=== PATIENT | female | born 1985 | race Caucasian/White ===

== ENCOUNTER 2021-04-02 11:55 | Outpatient (CLI) | payer OTHER, SELFPAY ==
[2021-04-02 12:16] VITALS: BP 124/79; PULSE 66
[2021-04-02 12:31] VITALS: BP 113/77; PULSE 64
[2021-04-02 12:35] LABS: Basophils Percent Auto 0.3 % (0.2-1.2); Eosinophils Percent Auto 0.3 % (0-4.4); Hematocrit 35.1 % (37.0-47.0); Hemoglobin 11.2 g/dL (12.0-15.0); Immature Granulocyte Absolute 0.03 K/mm3 (0.00-0.031); Immature Granulocyte Percent A 0.4 % (0-0.5); Lymphocytes Absolute Auto 1.65 K/mm3 (0.9-3.2); Lymphocytes Percent Auto 21.9 % (18.3-44.2); Mean Corpuscular HGB Conc 31.9 g/dl (32-36); Mean Corpuscular Hemoglobin 29.2 pg (26-34); Mean Corpuscular Volume 91.6 fl (80-100); Mean Platelet Volume 11.3 fl (7.4-10.4); Monocytes Absolute Auto 0.6 K/mm3 (0.1-0.6); Monocytes Percent Auto 8.2 % (2.6-8.5); Neutrophils Absolute Auto 5.2 K/mm3 (1.3-6.7); Neutrophils Percent Auto 68.9 % (45.5-73.1); Platelet Count Result 165 k/mm3 (150-375); Red Blood Count 3.83 M/mm3 (4.2-5.4); Red Cell Distribution Width 12.6 % (11.5-14.5); White Blood Count 7.6 K/mm3 (4.5-10.0)
[2021-04-02 12:45] VITALS: BP 110/72; PULSE 66
[2021-04-02 12:48] LABS: Alanine Aminotransferase 28 U/L (4-35); Albumin Level 3.5 g/dL (3.5-5.1); Alkaline Phosphatase 166 U/L (38-126); Anion Gap 5 mmol/L (8-16); Aspartate Amino Transferase 45 U/L (14-36); Bilirubin,Total 0.3 mg/dL (0.2-1.3); Blood Urea Nitrogen 9 mg/dL (7-17); Calcium 8.5 mg/dL (8.4-10.2); Carbon Dioxide 22 mmol/L (22-30); Chloride 107 mmol/L (98-107); Estimated Glomerular Filt Rate > 60; Glucose 65 mg/dL (65-110); Potassium 3.9 mmol/L (3.4-5.0); Sodium 134 mmol/L (137-145); Uric Acid 5.2 mg/dL (2.5-7.5)
[2021-04-02 12:49] LABS: Creatinine Urine 40.1 mg/dL; Total Protein Urine Random 10 mg/dL; Ur Ttl Prot Creatinine Ratio 0.25 mg/mg (0-0.20)
[2021-04-02 12:56] LABS: Add Urine Microscopic? YES; Appearance Urine Clear (Clear); Bilirubin Urine Negative (Negative); Blood Urine Negative (Negative); Color Urine Straw (Yellow); Glucose Urine UA Negative (Negative); Ketones Urine Negative (Negative); Leukocyte Esterase Ur 1+ LEU/UL (NEGATIVE); Nitrate Urine Negative (Negative); Protein Urine Negative (Negative); RBC Urine 0-2 /hpf (0-2); Specific Grav Ur 1.009 (1.001-1.035); Squamous Epithelial Cell Urine Rare /hpf (Few); Urobilinogen Urine Negative mg/dL (<2.0); WBC Urine 0-3 /hpf (0-3)
[2021-04-02 13:00] VITALS: BP 115/75; PULSE 69
[2021-04-02 13:15] VITALS: BP 113/79; PULSE 61
[2021-04-02 13:30] VITALS: BP 113/79; BP 124/79; PULSE 65; TEMP 36.8
--- NOTE | 2021-04-02 13:52 | PC.NURSE ---
Addendum entered by Hermelinda Cordero RN 04/02/21 13:53: this note was entered for 04/02/21 at 1320 Original Note: Dr. Castaneda reviewed strip and lab result. order received to discharge home with 24 hour urine and follow up in office on tuesday.
== END 2021-04-02 13:35 | disposition home or self-care (01) ==
LOC: ANHOBOP 11:59 → ANHOBPP 12:02
PROVIDERS: Visit Provider Obstetrics & Gynecology
DX: R03.0 Elevated blood-pressure reading, without diagnosis of hypertension (principal)
CPT/HCPCS: 36415; 59025; 80053; 81001; 82570; 84156; 84550; 85025; 87086; 99199

== ENCOUNTER 2021-04-03 17:06 | Outpatient (NON) | payer OTHER, SELFPAY ==
[2021-04-03 17:38] VITALS: BMI 27.3
[2021-04-03 19:07] LABS: Collection Time Urine 24 HOURS
[2021-04-03 19:19] LABS: Patient Weight 179 Lbs; Specific Gravity Ur 1.015
[2021-04-03 19:31] LABS: Creatinine Urine 50.9 mg/dL; Total Protein Urine Random 10 mg/dL
[2021-04-03 19:55] LABS: Creatinine Clearance Urine 157.3 ml/min (75-125); Total Protein Urine 24 Hr 350 mg/24hr (28-141); Total Volume 24 Hour Urine 3500 ml
== END 2021-04-03 17:07 | disposition home or self-care (01) ==
LOC: ANHOBOP 17:12
PROVIDERS: Visit Provider Obstetrics & Gynecology
DX: O13.9 Gestational [pregnancy-induced] hypertension without significant proteinuria, unspecified trimester (principal)
CPT/HCPCS: 81050; 82575; 84156

== ENCOUNTER 2021-04-16 16:00 | Inpatient (IN) | payer OTHER, SELFPAY ==
[2021-04-16] VITALS (39 sets, daily range): BP systolic 86–153; BP diastolic 46–105; PULSE 55–107; TEMP 36.4–36.9; O2SAT 96–100; BMI 29.0
[2021-04-16 16:44] LABS: Basophils Percent Auto 0.4 % (0.2-1.2); Eosinophils Percent Auto 0.5 % (0-4.4); Hematocrit 32.1 % (37.0-47.0); Hemoglobin 10.4 g/dL (12.0-15.0); Immature Granulocyte Absolute 0.03 K/mm3 (0.00-0.031); Immature Granulocyte Percent A 0.4 % (0-0.5); Lymphocytes Absolute Auto 1.91 K/mm3 (0.9-3.2); Lymphocytes Percent Auto 26.1 % (18.3-44.2); Mean Corpuscular HGB Conc 32.4 g/dl (32-36); Mean Corpuscular Hemoglobin 28.2 pg (26-34); Mean Platelet Volume 11.9 fl (7.4-10.4); Monocytes Absolute Auto 0.6 K/mm3 (0.1-0.6); Monocytes Percent Auto 8.3 % (2.6-8.5); Neutrophils Absolute Auto 4.7 K/mm3 (1.3-6.7); Neutrophils Percent Auto 64.3 % (45.5-73.1); Platelet Count Result 136 k/mm3 (150-375); Red Blood Count 3.69 M/mm3 (4.2-5.4); Red Cell Distribution Width 12.8 % (11.5-14.5); White Blood Count 7.3 K/mm3 (4.5-10.0)
--- NOTE | 2021-04-16 16:49 | LDADM ---
This patient, Caty Quinn, was admitted to Labor/Delivery/Recovery 102 on 04/16/21 at 16:00. Plans for labor, pain management and were discussed with patient. Patient/family oriented to hospital policies and general routines including ID bracelet, bed and alarms, visiting hours, pain management, procedures, bathroom and other care routines, personal items, smoking policy, room service/diet and guest tray routines, security routines, and visiting hours. Patient/Family are encouraged to report perceived risks to care and to ask questions if they do not understand what they are told or what they should do. See OBIX for further documentation.
[2021-04-16 16:53] LABS: Alanine Aminotransferase 16 U/L (4-35); Albumin Level 3.4 g/dL (3.5-5.1); Alkaline Phosphatase 177 U/L (38-126); Anion Gap 7 mmol/L (8-16); Aspartate Amino Transferase 32 U/L (14-36); Bilirubin,Total 0.2 mg/dL (0.2-1.3); Blood Urea Nitrogen 12 mg/dL (7-17); Calcium 8.2 mg/dL (8.4-10.2); Carbon Dioxide 20 mmol/L (22-30); Chloride 106 mmol/L (98-107); Estimated CRCL calculation 112 ml/min; Estimated Glomerular Filt Rate > 60; Glucose 78 mg/dL (65-110); Sodium 133 mmol/L (137-145)
[2021-04-16 16:56] LABS: Uric Acid 5.8 mg/dL (2.5-7.5)
[2021-04-16] MEDS: DINOPROSTONE 10 MG VAG INSERT VAGINAL (17:14)
--- NOTE | 2021-04-16 18:28 | WPDANESEPP ---
Anes - Eval Pre Procedure Procedure: labor epidural Date/Time: 04/16/21 18:28 Surgeon: fidel Pre Op Diagnosis: iol Patient Data Age: 36 Gender: F Height: 1.73 m Weight: 86.5 kg Last Vital Signs Temp 36.9 C 04/16/21 17:00 Pulse 61 04/16/21 18:00 BP 121/76 04/16/21 18:00 Allergies Allergy/AdvReac Type Severity Reaction Status Date / Time Sulfa (Sulfonamide Allergy Intermediate HIVES Verified 08/28/18 14:13 Antibiotics) Home Medications Medication Instructions Recorded Confirmed Type famotidine 20 mg PO DAILY 04/15/21 04/15/21 History prenat.vits,radha,uyn-pttf-pulis 1 tablet PO DAILY 04/15/21 04/15/21 History [ #2] Laboratory Tests 04/16/21 04/16/21 04/16/21 16:31 16:31 16:31 WBC 7.3 K/mm3 K/mm3 (4.5-10.0) RBC 3.69 M/mm3 L M/mm3 (4.2-5.4) Hgb 10.4 g/dL L g/dL (12.0-15.0) Hct 32.1 % L % (37.0-47.0) MCV 87.0 fl fl (80-100) MCH 28.2 pg pg (26-34) MCHC 32.4 g/dl g/dl (32-36) RDW 12.8 % % (11.5-14.5) Plt Count 136 k/mm3 L k/mm3 (150-375) MPV 11.9 fl H fl (7.4-10.4) Immature Gran % (Auto) 0.4 % % (0-0.5) Neut % (Auto) 64.3 % % (45.5-73.1) Lymph % (Auto) 26.1 % % (18.3-44.2) [place] % (Auto) 8.3 % % (2.6-8.5) Eos % (Auto) 0.5 % % (0-4.4) Baso % (Auto) 0.4 % % (0.2-1.2) Lymph # (Auto) 1.91 K/mm3 K/mm3 (0.9-3.2) [place] # (Auto) 0.6 K/mm3 K/mm3 (0.1-0.6) Eos # (Auto) 0.0 K/mm3 K/mm3 (0-0.3) Baso # (Auto) 0.0 K/mm3 K/mm3 (0.0-0.1) Abs Immat Gran (auto) 0.03 K/mm3 K/mm3 (0.00-0.031) Absolute Neuts (auto) 4.7 K/mm3 K/mm3 (1.3-6.7) Absolute Nucleated RBC 0.0 K/mm3 K/mm3 (0.0-0.012) Nucleated RBC % 0.0 % % (0.0-0.2) Sodium Potassium Chloride Carbon Dioxide Anion Gap BUN Creatinine Estim Creat Clear Calc Estimated GFR Glucose Uric Acid 5.8 mg/dL mg/dL (2.5-7.5) Calcium Total Bilirubin AST ALT Alkaline Phosphatase Total Protein Albumin RPR Pending 04/16/21 16:31 WBC RBC Hgb Hct MCV MCH MCHC RDW Plt Count MPV Immature Gran % (Auto) Neut % (Auto) Lymph % (Auto) [place] % (Auto) Eos % (Auto) Baso % (Auto) Lymph # (Auto) [place] # (Auto) Eos # (Auto) Baso # (Auto) Abs Immat Gran (auto) Absolute Neuts (auto) Absolute Nucleated RBC Nucleated RBC % Sodium 133 mmol/L L mmol/L (137-145) Potassium 4.0 mmol/L mmol/L (3.4-5.0) Chloride 106 mmol/L mmol/L (98-107) Carbon Dioxide 20 mmol/L L mmol/L (22-30) Anion Gap 7 mmol/L L mmol/L (8-16) BUN 12 mg/dL mg/dL (7-17) Creatinine 0.70 mg/dL mg/dL (0.7-1.0) Estim Creat Clear Calc 112 ml/min ml/min Estimated GFR > 60 (59 - ) Glucose 78 mg/dL mg/dL (65-110) Uric Acid Calcium 8.2 mg/dL L mg/dL (8.4-10.2) Total Bilirubin 0.2 mg/dL mg/dL (0.2-1.3) AST 32 U/L U/L (14-36) ALT 16 U/L U/L (4-35) Alkaline Phosphatase 177 U/L H U/L (38-126) Total Protein 6.0 g/dL L g/dL (6.3-8.2) Albumin 3.4 g/dL L g/dL (3.5-5.1) RPR Patient hx anesthesia problems: none Family hx anesthesia problems: none Results Review: All pre-operative results and documents have been reviewed as part of the pre-operative evaluation. [facility] Family History Family History (Updated 04/15/21 @ 13:09 by Tanisha Boggs RN) Other No pertinent family history Social History Social History Smoking status: Never smoker
[2021-04-16] MEDS: LACTATED RINGERS 1,000 ML 125 ML IV CONT ×2 (22:52→23:42)
[2021-04-17] VITALS (99 sets, daily range): BP systolic 86–173; BP diastolic 53–131; PULSE 52–123; RESP 16–18; TEMP 36.2–37.2; O2SAT 95–100
[2021-04-17] MEDS: ONDANSETRON INJ 4 MG/2 ML VIAL IV PUSH (03:24)
[2021-04-17] MEDS: OXYTOCIN 30 UNITS/NS 500 ML 30 UNITS/500 ML BAG IV CONT (04:39)
--- NOTE | 2021-04-17 05:52 | WPDOBADMIT ---
Obstetrics - Admit Note Admission Note: record reviewed. Additions to the history and/or subsequent changes in the physical findings follow. 36 y/o at 37 6/7 weeks gestation with gestational HTN, here for induction of labor. No headaches, no visual field change, no RUQ or epigastric pain. Good movement. Cervidil was placed overnight. She developed contractions and Cervidil was withdrawn. She received an epidural for pain control. SROM this morning, clear fluid. Labor has progressed without further stimulation and her cervix is completely dilated. GBS neg. AVSS NST reactive TOCO contractions every 2-3 min ABD soft, nontender, gravid, vertex EXT nontender Cervix completely dilated, +2. A: IUP at 37 6/7 weeks with gestational HTN, here for induction of labor. P: Begin pushing.
--- NOTE | 2021-04-17 05:56 | PM.OBPRVD ---
OB - Delivery Note Procedure Delivery date: 04/17/21 Procedure: Induction of labor with NVSD Intrapartal events: None Induction method: per misoprostol protocol Delivery monitor: external FHT and external uterine Route of delivery: Laceration Description: Perineal - 2nd Degree Delivery repair: vicryl (3-0) Specimen: Yes (cord blood) Quantitative Blood Loss (ml): 105 Anesthesia type: Epidural Disposition: PACU Complications: None Narrative: 36 y/o at 37 6/7 weeks gestation who presented to the hospital for induction of labor. Cervidil was placed. She developed contractions and the Cervidil was withdrawn. She received an epidural for pain control. Her labor progressed and her cervix dilated completely without further stimulation. SROM occurred with clear fluid. She pushed with good effort and delivered the infant's head to the perineum, followed by the body. The nose and mouth were bulb suctioned. After a delay, the cord was clamped and cut. The was handed off the field. Cord blood was collected. The placenta delivered spontaneously and was grossly normal in appearance. The usual 3 vessel cord was noted. A second degree midline perineal laceration was sustained. This was reapproximated using 3 0 Vicryl in the usual layered fashion. Excellent hemostasis resulted as did excellent reapproximation of the normal anatomy. Needle and instrument counts were correct. The patient was taken to recovery room in stable condition. The went to the nursery in stable condition. I was present and scrubbed for the entire delivery. Baby Date of : 04/17/21 Time of : 05:39 Weeks of gestation at delivery: 37 Infant gender: Male Weight (pounds): 7 Weight (ounces): 9 presentation: vertex position: Left Occiput Anterior Placenta delivery description: Spontaneous and Normal Configuration cord vessel description: 3 Vessels and Delayed Cord Clamping score one minute: 9 score five minutes: 9
--- NOTE | 2021-04-17 06:00 | PM.OBDSVD ---
DS: Admitting Diagnosis Discharge Date 04/18/21 Admitting Diagnosis IUP at 37 6/7 weeks Gestational HTN DS: Discharge Diagnosis Discharge Diagnosis (1) (normal spontaneous vaginal delivery): Code(s): O80 - Encounter for full-term uncomplicated delivery Status: Acute (2) Gestational hypertension: Code(s): O13.9 - Gestational [-induced] hypertension without significant proteinuria, unspecified trimester Status: Acute OB - DS: Summary OB Procedures : PIH Mgmt OB Procedures Intrapartum: Spontaneous Vag Delivery OB Procedures: : None DS: Data Data Completed and Pending Labs on day of discharge: Labs from last 24 hours 04/16/21 04/16/21 04/16/21 16:31 16:31 16:31 WBC RBC Hgb Hct MCV MCH MCHC RDW Plt Count MPV Immature Gran % (Auto) Neut % (Auto) Lymph % (Auto) [place] % (Auto) Eos % (Auto) Baso % (Auto) Lymph # (Auto) [place] # (Auto) Eos # (Auto) Baso # (Auto) Abs Immat Gran (auto) Absolute Neuts (auto) Absolute Nucleated RBC Nucleated RBC % Sodium 133 L Potassium 4.0 Chloride 106 Carbon Dioxide 20 L Anion Gap 7 L BUN 12 Creatinine 0.70 Estim Creat Clear Calc 112 Estimated GFR > 60 Glucose 78 Uric Acid Calcium 8.2 L Total Bilirubin 0.2 AST 32 ALT 16 Alkaline Phosphatase 177 H Total Protein 6.0 L Albumin 3.4 L RPR Pending Blood Type O Positive Antibody Screen Negative 04/16/21 04/16/21 16:31 16:31 WBC 7.3 RBC 3.69 L Hgb 10.4 L Hct 32.1 L MCV 87.0 MCH 28.2 MCHC 32.4 RDW 12.8 Plt Count 136 L MPV 11.9 H Immature Gran % (Auto) 0.4 Neut % (Auto) 64.3 Lymph % (Auto) 26.1 [place] % (Auto) 8.3 Eos % (Auto) 0.5 Baso % (Auto) 0.4 Lymph # (Auto) 1.91 [place] # (Auto) 0.6 Eos # (Auto) 0.0 Baso # (Auto) 0.0 Abs Immat Gran (auto) 0.03 Absolute Neuts (auto) 4.7 Absolute Nucleated RBC 0.0 Nucleated RBC % 0.0 Sodium Potassium Chloride Carbon Dioxide Anion Gap BUN Creatinine Estim Creat Clear Calc Estimated GFR Glucose Uric Acid 5.8 Calcium Total Bilirubin AST ALT Alkaline Phosphatase Total Protein Albumin RPR Blood Type Antibody Screen Discharge Plan Discharge Attending physician on discharge: Irvin Castaneda Discharging Clinician: Jean Claude Holley Patient Disposition: Home, Self-Care Activity: pelvic rest Diet: regular Discharge Instructions: Education: Mom and Baby Guide Given to: Mother Follow-Up: Call your delivering provider's office for an appointment to be seen in: 6 Weeks Mom and baby should come to the [facility] for the follow-up appointment. Appointment Date/Time: Tuesday, April 20, 2021 at 8:00 am Call [phone] if you are unable to keep your appointment time. BREAST CARE: * Wear a snug supportive bra. * For engorgement discomfort: Breast Feeding: * Apply warm moist washcloths * Express milk as needed to relieve engorgement * Wear loose clothing Bottle Feeding: * May apply ice packs * For sore nipples: * Identify correct latch-on * Apply warm moist washcloths before and after nursing * Air dry nipples after nursing * May apply Lansinoh cream to nipples EPISIOTOMY/PERINEAL CARE: * Until bleeding stops, use your meño bottle after urinating * Change your pad frequently throughout the day * You may take sitz baths several times a day (fill your bathtub with warm water and soak for 20 minutes.) Do NOT bathe in the water * No tub baths until seen by your physician - You may shower ACTIVITY: * Rest as much as possible. * Do not exercise or lift anything heavier than your baby (such as laundry or other children.) * Avoid stairs or drivi
[2021-04-17] MEDS: OXYTOCIN 30 UNITS/NS 500 ML 30 UNITS/500 ML BAG 125 UNITS IV CONT (06:12)
[2021-04-17] MEDS: WITCH HAZEL 40 PADS 1 PAD TOPICAL (08:00)
[2021-04-17] MEDS: BENZOCAINE 20% AER SPR (*SP) 56 GM CAN 1 SPRAY TOPICAL (08:00)
[2021-04-17] MEDS: IBUPROFEN 600 MG TABLET PO ×2 (08:00→13:24)
--- NOTE | 2021-04-17 09:00 | OBPPTRN ---
Patient transferred to post room #280 via wheelchair. Support person present. Oriented to unit, room, information board, rooming in, admission packet and security measures. Patient verbalizes understanding.
[2021-04-17 11:03] LABS: Rapid Plasma Reagin Non-Reactive (NonReactive)
--- NOTE | 2021-04-17 12:02 | PC.NURSE ---
Consulted with patient, reviewed infant feeding cues, frequencies, duration of feedings, feeding elimination flow sheet, and signs of adequate intake. Nipple care reviewed. Instructed mother to call out for RN assistance if she is unable to latch for feeding or she has discomfort with nursing. Instructed feeding should be initiated three hours from start of last feeding or if feeding cues are noted before. Encouraged mom to call out with next feeding to have it assessed. Mother voiced understanding of information shared.
--- NOTE | 2021-04-17 12:16 | PC.NURSE ---
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 Patient given pumping log, educated on hands on pumping, supply and demand. Instructions given on breast pump care and usage, pumping schedule, nipple care, and collection and storage of breast milk. Educated patient on correct flange size and comfort with pumping. Patient verbalizes understanding of instructions.
[2021-04-17] MEDS: ACETAMINOPHEN 325 MG TABLET 650 MG PO (13:24)
[2021-04-18] VITALS: BP 136/94; PULSE 71; RESP 18; TEMP 36.7
[2021-04-18 04:45] VITALS: BP 127/70; PULSE 62; RESP 18; TEMP 36.8
[2021-04-18] MEDS: IBUPROFEN 600 MG TABLET PO (04:56)
[2021-04-18 05:36] LABS: Hematocrit 31.8 % (37.0-47.0); Hemoglobin 10.3 g/dL (12.0-15.0)
--- NOTE | 2021-04-18 07:21 | PM.DS ---
DS: Admitting Diagnosis Discharge Date 04/18/2021 Admitting Diagnosis term intrauterine DS: Summary Hospital Course Hospital Course: patient was admitted underwent spontaneous vaginal delivery. She remained afebrile. She was up, voiding without difficulty, ambulating, generally without complaints Time Spent with Patient Time attestation: Total time spent providing and/or coordinating discharge services: Exam Const: General: no acute distress Eyes: General: appearance normal, both eyes and all related structures Neck: Neck: supple and no JVD Thyroid: thyroid normal Resp: Effort & Inspection: normal respiratory effort Auscultation: clear to auscultation bilaterally Cardio: Rate: regular rate Rhythm: regular rhythm GI: Inspection: non-distended GI Palp: Yes Soft to palpation, No Tenderness to palpation present (GI) and No Guarding due to palpation present (GI) Auscultation: normal bowel sounds : General: Yes bladder normal to palpation External Female Exam: normal external appearance Speculum Exam - Vagina: normal vaginal discharge and No vaginal bleeding Speculum Exam - Cervix: nontender Bimanual exam- vagina & uterus: bladder normal to palpation and No Cervical tenderness present OB/external & speculum: No vaginal bleeding Skin: General skin exam: no rashes or lesions noted Extrem: General: normal to inspection and no edema Psych: Mental Status: mental status grossly normal Affect: normal affect DS: Data Data Completed and Pending Labs on day of discharge: Labs from last 24 hours 04/18/21 04/16/21 04:54 16:31 Hgb 10.3 L Hct 31.8 L RPR Non-reactive Discharge Plan Discharge Attending physician on discharge: Irvin Castaneda Discharging Clinician: Jean Claude Holley Patient Disposition: Home, Self-Care Activity: pelvic rest Diet: regular Discharge Instructions: Call or return if temperature above 100.4? F, increased abdominal pain, increased vaginal bleeding or any new problems. Stand Alone Forms: General Discharge Information Follow-up/Referrals: Irvin Castaneda MD [Physician] - 6 Weeks Discharge Medications: New ibuprofen 600 mg tablet 600 mg PO Q6H PRN (Reason: cramps) Qty: 30 RF: 0 Continued famotidine 20 mg Tablet 20 mg PO DAILY RF: 0 #2 Tablet 1 tablet PO DAILY RF: 0 Date of admission: 04/16/21 16:00 Primary Care Provider: PHYSICIAN,TOBACCO SWEEPER Admitting Provider: Irvin Castaneda Attending physician on admission: Irvin Castaneda Condition: Stable
--- NOTE | 2021-04-18 07:22 | PM.OBPNVD ---
OB - PN: Subj Subjective Date/time seen: 04/18/21 07:22 Patient comments: no complaints and pain well controlled baby status: doing well OB - PN: Obj Data Labs CBC & Chem 7: 04/18/21 04:54 04/16/21 16:31 Labs: Laboratory Results - last 24 hr 04/16/21 04/18/21 16:31 04:54 Hgb 10.3 L Hct 31.8 L RPR Non-reactive OB - PN A/P Plan day: 2 Plan: routine care, discharge home and follow up 6 weeks Time Spent With Patient Time: Total time spent is greater than 50% in coordination of care (as documented) at patient's floor/unit and/or counseling patient: Time with patient: less than 15 minutes Review of Systems Review of Systems: All systems reviewed & are unremarkable except as noted in HPI and below Exam Const: General: no acute distress Eyes: General: appearance normal, both eyes and all related structures Neck: Neck: supple and no JVD Thyroid: thyroid normal Resp: Effort & Inspection: normal respiratory effort Auscultation: clear to auscultation bilaterally Cardio: Rate: regular rate Rhythm: regular rhythm GI: Inspection: non-distended GI Palp: Yes Soft to palpation, No Tenderness to palpation present (GI) and No Guarding due to palpation present (GI) Auscultation: normal bowel sounds : General: Yes bladder normal to palpation External Female Exam: normal external appearance Speculum Exam - Vagina: normal vaginal discharge and No vaginal bleeding Speculum Exam - Cervix: nontender Bimanual exam- vagina & uterus: bladder normal to palpation and No Cervical tenderness present OB/external & speculum: No vaginal bleeding Skin: General skin exam: no rashes or lesions noted Extrem: General: normal to inspection and no edema Psych: Mental Status: mental status grossly normal Affect: normal affect
[2021-04-18 10:49] VITALS: BP 134/79; PULSE 70; RESP 16; TEMP 36.3; O2SAT 98
[2021-04-18] MEDS: DOCUSATE SODIUM 100 MG CAPSULE PO (10:50)
--- NOTE | 2021-04-18 11:30 | WPDANLDPN2 ---
Anes-Prog Note L&D Date/Time: 04/18/21 11:30 Comfortable throughout: labor and delivery Neuraxial method: epidural Epidural/Spinal procedure site: clean & non-tender Neuro status: Neuro function grossly intact. Cardiovascular status: normal Respiratory status: normal Airway patency: baseline Mental status: baseline Post-Op hydration status: normal Vital Signs: Last Vital Signs Temp 36.3 C L 04/18/21 10:49 Pulse 70 04/18/21 10:49 Resp 16 04/18/21 10:49 BP 134/79 04/18/21 10:49 Pulse Ox 98 04/18/21 10:49 Pain score (VAS): 0 I/O: Intake & Output 04/17/21 04/18/21 04/18/21 23:59 07:59 15:59 Intake Total 750 2000 900 Output Total 1050 2350 600 Balance -300 -350 300 Post-procedural complaints: none Patient feedback: Patient satisfied with anesthetic care.
[2021-04-20 07:50] VITALS: BP 128/85; PULSE 69; RESP 16; TEMP 36.8; O2SAT 99
--- NOTE | 2021-04-21 10:25 | PC.NURSE ---
Patient calling today about latch concerns. Consulted with patient while here for 's bilirubin test. Patient delivered on 04-17-21. Reports is gassy and not latching on left breast as deep as she would like. Mom reports she is feeding around every 2 hours due to being jaundice. Mom reports that she pumped once and was able to pump almost 2 ounces. has had 5-6 wet diapers and at least 6 yellow seedy diapers in the past 24 hours. Small abrasion noted on of mom's nipple surface. woke to feed. Mom has infant in cradle hold with 's mouth at the nipple. Infant attaches with shallow latch. Assisted mom to put infant in cross cradle and to line nose to nipple. Infant latches with deeper latch after 2 attempts. Educated mom on breaking suction when detaching from breast to avoid trauma to tissue. Encouraged mom to work with until a deep latch is achieved each time. Shown how to get more tissue into infant's mouth while feeding. Infant nursed eagerly, with steady draws and frequent swallowing noted. Reviewed signs of a correct latch. was able to maintain latch without discomfort to mother. Nipple care reviewed. Mother voiced understanding of information shared. Mother has no further questions at this time. PLAN: Mother is going to work on obtaining deep latch each time at home and call line with any questions. Infant has scheduled appt with peds on .
== END 2021-04-18 14:20 | disposition home or self-care (01) | DRG 807 ==
LOC: ANHLDR 04-17 06:01 → ANHOB2 04-18 11:57 → ANHLDR 04-20 12:04 → ANHOB2 04-20 12:04
PROVIDERS: Admitting Provider Obstetrics & Gynecology; Visit Provider Obstetrics & Gynecology
DX: O13.4 Gestational [pregnancy-induced] hypertension without significant proteinuria, complicating childbirth (principal); Z37.0 Single live birth; Z3A.37 37 weeks gestation of pregnancy; O70.1 Second degree perineal laceration during delivery
CPT/HCPCS: 36415; 80053; 84550; 85014; 85018; 85025; 86592; 86850; 86900; 86901; A9270; J2405; J2590; J2795; J7120